=== PATIENT | female | born 1945 | race Caucasian/White ===

== ENCOUNTER → 2017-06-15 | Outpatient (CLI) | payer MEDICARE, BC ==
[2017-06-15 12:56] LABS: CH 31.2; CHCM 32.3; HCT 36.8 % (34.0-46.0); HDW 2.35; HGB 11.9 gm/dL (11.4-16.0); MCH 31.2 pg (25.0-35.0); MCHC 32.2 g/dL (31.0-37.0); MCV 96.9 fL (80.0-100.0); Mean Platelet Volume 8.5; WBC 6.3 k/uL (3.8-10.6)
[2017-06-15 12:59] LABS: Calcium 9.7 mg/dL (8.4-10.2); Phosphorous 3.7 mg/dL (2.5-4.5)
[2017-06-15 18:14] LABS: Amorphous Sediment,Urine Rare /hpf; Appearance,Urine Clear (Clear); Bilirubin,Urine Negative (Negative); Glucose,Urine (UA) Negative (Negative); Ketones,Urine Negative (Negative); Leukocyte Esterase,Urine Trace (Negative); Mucus,Urine Rare /hpf; Nitrite,Urine Negative (Negative); PH, Urine 5.5 (5.0-8.0); Particle Count 840; Protein,Urine Negative (Negative); RBC,Urine <1 /hpf (0-5); Squamous Epithelial Cell,Urine 1 /hpf (0-4); UA Billing (MACRO vs. MICRO) MICRO; Urobilinogen,Urine <2.0 mg/dL (<2.0); WBC,Urine 2 /hpf (0-5)
== END | disposition home or self-care (01) ==
LOC: LABWHC1 12:00
PROVIDERS: ATTEND Specialist
DX: N18.3 Chronic kidney disease, stage 3 (moderate) (principal)
CPT/HCPCS: 36415; 80069; 81001; 82306; 82570; 84156; 85027

== ENCOUNTER → 2017-10-18 | Outpatient (CLI) | payer MEDICARE, BC ==
[2017-10-18 09:20] LABS: Basophils # (A) 0.1 k/uL (0-0.2); Basophils % (A) 1 %; Eosinophils # (A) 0.2 k/uL (0-0.7); Eosinophils % (A) 3 %; HCT 38.4 % (34.0-46.0); HGB 12.1 gm/dL (11.4-16.0); Lymphocytes # (A) 1.5 k/uL (1.0-4.8); Lymphocytes % (A) 23 %; MCHC 31.5 g/dL (31.0-37.0); MCV 95.3 fL (80.0-100.0); Mean Platelet Volume 8.1; Monocytes # (A) 0.4 k/uL (0-1.0); Monocytes % (A) 6 %; Neutrophils # (A) 4.3 k/uL (1.3-7.7); Neutrophils % (A) 65 %; Platelet Count 223 k/uL (150-450); RBC 4.03 m/uL (3.80-5.40); RDW 12.5 % (11.5-15.5); WBC 6.5 k/uL (3.8-10.6)
[2017-10-18 09:55] LABS: Carbamazepine (Tegretol) 6.3 ug/mL
== END | disposition home or self-care (01) ==
LOC: LABWHC1 08:25
PROVIDERS: ATTEND Psychiatry & Neurology Psychiatry
DX: F31.9 Bipolar disorder, unspecified (principal)
CPT/HCPCS: 36415; 80156; 80178; 85025

== ENCOUNTER → 2017-12-12 | Outpatient (CLI) | payer MEDICARE ==
[2017-12-12 08:41] LABS: HCT 34.6 % (34.0-46.0); HGB 11.7 gm/dL (11.4-16.0); MCH 30.8 pg (25.0-35.0); MCHC 33.8 g/dL (31.0-37.0); MCV 91.3 fL (80.0-100.0); Mean Platelet Volume 7.8; Platelet Count 208 k/uL (150-450); RBC 3.79 m/uL (3.80-5.40); RDW 12.3 % (11.5-15.5); WBC 6.3 k/uL (3.8-10.6)
[2017-12-12 08:43] LABS: Amorphous Sediment,Urine Rare /hpf; Appearance,Urine Cloudy (Clear); Bilirubin,Urine Negative (Negative); Blood,Urine Negative (Negative); Color,Urine Light Yellow; Glucose,Urine (UA) Negative (Negative); Ketones,Urine Negative (Negative); Leukocyte Esterase,Urine Moderate (Negative); Nitrite,Urine Negative (Negative); PH, Urine 6.5 (5.0-8.0); Protein,Urine Negative (Negative); RBC,Urine 7 /hpf (0-5); Specific Gravity,Urine 1.008 (1.001-1.035); Squamous Epithelial Cell,Urine <1 /hpf (0-4); Urobilinogen,Urine <2.0 mg/dL (<2.0); WBC,Urine 12 /hpf (0-5)
[2017-12-12 08:50] LABS: Albumin 4.2 g/dL (3.5-5.0); Calcium 9.7 mg/dL (8.4-10.2); Phosphorus 3.5 mg/dL (2.5-4.5); Potassium 4.8 mmol/L (3.5-5.1)
== END | disposition home or self-care (01) ==
LOC: LABWHC1 08:08
PROVIDERS: ATTEND Specialist
DX: N18.3 Chronic kidney disease, stage 3 (moderate) (principal)
CPT/HCPCS: 36415; 80069; 80178; 81001; 82043; 82306; 82570; 85027

== ENCOUNTER → 2018-06-26 | Outpatient (CLI) | payer MEDICARE ==
[2018-06-26 09:37] LABS: Basophils % (A) 1 %; Eosinophils # (A) 0.2 k/uL (0-0.7); Eosinophils % (A) 3 %; HCT 35.7 % (34.0-46.0); HGB 11.6 gm/dL (11.4-16.0); Lymphocytes # (A) 1.6 k/uL (1.0-4.8); Lymphocytes % (A) 24 %; MCH 30.3 pg (25.0-35.0); MCHC 32.4 g/dL (31.0-37.0); MCV 93.4 fL (80.0-100.0); Mean Platelet Volume 8.2; Monocytes # (A) 0.4 k/uL (0-1.0); Monocytes % (A) 7 %; Neutrophils # (A) 4.3 k/uL (1.3-7.7); Neutrophils % (A) 65 %; Platelet Count 204 k/uL (150-450); RBC 3.82 m/uL (3.80-5.40); RDW 12.5 % (11.5-15.5); WBC 6.5 k/uL (3.8-10.6)
[2018-06-26 10:14] LABS: Lithium 1.3 mmol/L; Potassium 4.8 mmol/L (3.5-5.1)
[2018-06-26 10:29] LABS: T4, Free (Free Thyroxine) 0.94 ng/dL (0.78-2.19)
== END ==
LOC: LABWHC1 08:00
PROVIDERS: ATTEND Psychiatry & Neurology Psychiatry
DX: F31.9 Bipolar disorder, unspecified (principal)
CPT/HCPCS: 36415; 80051; 80178; 82565; 84439; 84443; 84520; 85025

== ENCOUNTER → 2018-07-23 | Outpatient (CLI) | payer MEDICARE ==
[2018-07-23 08:40] LABS: HCT 35.3 % (34.0-46.0); HGB 11.3 gm/dL (11.4-16.0); MCH 30.1 pg (25.0-35.0); MCHC 32.1 g/dL (31.0-37.0); Mean Platelet Volume 7.2; Platelet Count 218 k/uL (150-450); RBC 3.76 m/uL (3.80-5.40); RDW 12.4 % (11.5-15.5); WBC 7.4 k/uL (3.8-10.6)
[2018-07-23 19:00] LABS: Creatinine,Urine Random 37.7 mg/dL
[2018-07-23 19:08] LABS: Albumin 4.3 g/dL (3.80-4.90); Anion Gap 6.2 mmol/L (4.00-12.00); Calcium 9.2 mg/dL (8.7-10.3); Carbon Dioxide 22.8 mmol/L (21.6-31.8); Phosphorus 3.8 mg/dL (2.4-5.1); Potassium 4.4 mmol/L (3.5-5.5)
[2018-07-24 09:05] LABS: Total Protein,Urine Random 4.4
== END | disposition home or self-care (01) ==
LOC: LABWHC1 07:56
PROVIDERS: ATTEND Specialist
DX: E55.9 Vitamin D deficiency, unspecified (principal); N18.3 Chronic kidney disease, stage 3 (moderate); N17.9 Acute kidney failure, unspecified
CPT/HCPCS: 36415; 80069; 80178; 82306; 82570; 84156; 85027

== ENCOUNTER → 2018-10-08 | Outpatient (CLI) | payer MEDICARE ==
[2018-10-08 10:30] LABS: HCT 39.1 % (34.0-46.0); HGB 12.3 gm/dL (11.4-16.0); MCH 30.2 pg (25.0-35.0); MCHC 31.5 g/dL (31.0-37.0); Mean Platelet Volume 6.7; Platelet Count 211 k/uL (150-450); RBC 4.07 m/uL (3.80-5.40); RDW 12.4 % (11.5-15.5)
[2018-10-08 17:33] LABS: Albumin 4.7 g/dL (3.80-4.90); Anion Gap 8.4 mmol/L (4.00-12.00); Calcium 9.4 mg/dL (8.7-10.3); Carbon Dioxide 24.6 mmol/L (21.6-31.8); Lithium 0.9 mmol/L (1.0-1.2); Phosphorus 3.2 mg/dL (2.4-5.1); Potassium 4.4 mmol/L (3.5-5.5)
[2018-10-08 18:19] LABS: Creatinine,Urine Random 45.2 mg/dL
== END | disposition home or self-care (01) ==
LOC: LABWHC1 09:48
PROVIDERS: ATTEND Specialist
DX: E55.9 Vitamin D deficiency, unspecified (principal); N18.3 Chronic kidney disease, stage 3 (moderate); N17.9 Acute kidney failure, unspecified
CPT/HCPCS: 36415; 80069; 80178; 82306; 82570; 84156; 85027